=== PATIENT | male | born 1995 | race African-American/Black ===

== ENCOUNTER 2024-10-28 21:10 | Emergency (ER) | payer OTHER | END 2024-10-28 22:12 | disposition home or self-care (01) | LOC: JD.ED 21:10 | DX: S40.011A Contusion of right shoulder, initial encounter (principal); Z87.891 Personal history of nicotine dependence; V68.5XXA Driver of heavy transport vehicle injured in noncollision transport accident in traffic accident, initial encounter | CPT/HCPCS: 73030-26-RT; 73030-RT; 99283; 99284 ==